=== PATIENT | male | born 1950 | race Caucasian/White ===

== ENCOUNTER 2019-05-23 15:06 | Emergency (ER) | payer MEDICARE, BC ==
[2019-05-23 15:18] VITALS: BP 126/90; PULSE 102
[2019-05-23] MEDS ORDERED: Butorphanol 2 MG/ML SDV IM ONE (16:09)
--- NOTE | 2019-05-23 17:07 | EDM.PDOC ---
Scribed by Felicita Martinez 05/23/19 [id number] for Sarah Velasquez NP ED HPI GENERAL MEDICAL PROBLEM - General Chief Complaint: Back Pain or Injury Stated Complaint: AMBULANCE Time Seen by Provider: 05/23/19 15:20 Source of Information: Reports: Patient, RN, RN Notes Reviewed History Limitations: Reports: No Limitations - History of Present Illness INITIAL COMMENTS - FREE TEXT/NARRATIVE: A 68-year-old patient who has chronic low back pain without surgery. He had a back injury in 1992 and sees a chiropractor for his pain. He takes hydrocodone 10/325 2x times daily by his PCP. He has a history of COPD and HTN that is stable. His back has been bothering him more the last 1.5 days. He was sitting on the toilet just prior to calling EMS and had a back spasm and could not get up. No recent falls. He works at [employer] and does not recall any particular injury. No radiculopathy or numbness in LE. No incontinence. 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: Other Medication(s) (Hydrocodone and soma) Lower Back Pain Score (Numeric/FACES): 8 - Related Data Allergies Allergy/AdvReac Type Severity Reaction Status Date / Time acetaminophen [From Endocet] Allergy Other Verified 09/21/15 09:19 cyclobenzaprine HCl Allergy Cannot Verified 09/21/15 09:19 [From Flexeril] Remember oxycodone HCl [From Endocet] Allergy Other Verified 09/21/15 09:19 Penicillins Allergy Itching Verified 09/21/15 09:19 piroxicam [From Feldene] Allergy Other Verified 09/21/15 09:19 Home Meds: Home Meds Albuterol [Ventolin HFA] 2 puff INH Q6H PRN 09/07/15 [History] Carisoprodol [Soma] 1 tab PO BID 09/07/15 [History] Hydrocodone/Acetaminophen [[place] 10-325] 1 tab PO QID PRN 09/07/15 [History] Losartan [Cozaar] 1 tab PO BID 09/07/15 [History] RABEprazole [Aciphex] 1 tab PO DAILY 09/07/15 [History] Simvastatin [Zocor] 1 tab PO BEDTIME 09/07/15 [History] hydrOXYzine Pamoate [Vistaril] 1 cap PO TID PRN 09/07/15 [History] Past Medical History - Past Health History Medical/Surgical History: Denies Medical/Surgical History HEENT History: Reports: Cataract, Other (See Below) Other HEENT History: TINNITUS Cardiovascular History: Reports: High Cholesterol, Hypertension Respiratory History: Reports: COPD Gastrointestinal History: Reports: PUD Genitourinary History: Reports: None Musculoskeletal History: Reports: Back Pain, Chronic, Fracture, Osteoarthritis, Other (See Below) Other Musculoskeletal History: DEGENERATION OF INTERVERTEBRAL DISC; L CARPAL NAVICULAR FRACTURE Neurological History: Reports: Other (See Below) Other Neuro History: INSOMNIA Psychiatric History: Reports: Anxiety, Mood Swings Endocrine/Metabolic History: Reports: Other (See Below) Other Endocrine/Metabolic History: HYPERHIDROSIS Hematologic History: Reports: None Immunologic History: Reports: None Oncologic (Cancer) History: Reports: None Dermatologic History: Reports: None - Past Surgical History GI Surgical History: Reports: Appendectomy Musculoskeletal Surgical History: Reports: Arthroscopic Knee ED ROS GENERAL - Review of Systems Review Of Systems: ROS reveals no pertinent complaints other than HPI. ED EXAM,LOWER BACK PAIN/INJURY - Physical Exam Exam: See Below Exam Limited By: No Limitations General Appearance: Alert, WD/WN, No Apparent Distress Eye Exam: Bilateral Eye: EOMI, Normal Inspection, PERRL Ears: Normal External Exam, Normal Canal, Hearing Grossly Normal, Normal TMs Nose: Normal Inspection, Normal Mucosa, No Blood Throat/Mouth: Normal Inspection, Normal Lips, Normal Teeth, Normal Gums, Normal Oropharynx, Normal Voice, No Airway Compromise Head: Atraumatic, Normocephalic Neck: Normal Inspection, Supple, Non-Tender, Full Range of Motion Respiratory/Chest: No Respiratory Distress, Lungs Clear, Normal Breath Sounds, No Accessory Muscle Use, Chest Non-Tender Cardiovascular: Normal Peripheral Pulses, Regular Rate, Rhythm, No Edema, No Gallop, No JVD, No Murmur, No Rub GI/Abdominal: Normal Bowel Sounds, Soft, Non-Tender, No Organomegaly, No Distention, No Abnormal Bruit, No Mass (Male) Exam: Deferred Rectal (Males) Exam: Deferred Back Exam: Muscle Spasm, Other (Tender to palpate over the L3-4. No CVA tenderness) Extremities: Normal Inspection, Normal Range of Motion, Non-Tender, No Pedal Edema, Normal Capillary Refill Neurological: Alert, Normal Mood/Affect, Normal Dorsiflexion, CN II-XII Intact, Normal Plantar Flexion, Normal Gait, Normal Reflexes, No Motor/Sensory Deficits , Oriented x 3 Psychiatric: Normal Affect, Normal Mood Skin Exam: Warm, Dry, Intact, Normal Color, No Rash Course - Vital Signs Last Recorded V/S: Last Vital Signs Temp 37.9 C 05/23/19 15:14 Pulse 102 H 05/23/19 15:14 Resp 20 05/23/19 15:14 BP 126/90 05/23/19 15:14 Pulse Ox 100 05/23/19 15:14 - Orders/Labs/Meds Orders: Active Orders 24 hr Category Date Time Status Lumbar Spine 2 or 3V [CR] Urgent Exams 05/23/19 15:38 Taken CULTURE URINE [RM] Stat Lab 05/23/19 15:52 Received Orphenadrine [Norflex] Med 05/23/19 16:15 Active 60 mg IM Q12H Medication Orders Orphenadrine Citrate (Norflex) 60 mg IM Q12H THAO Last Admin: 05/23/19 16:17 Dose: 60 mg Labs: Laboratory Tests 05/23/19 05/23/19 Range/Units 15:52 15:52 Urine Color Yellow (YELLOW) Urine Appearance Clear (CLEAR) Urine pH 5.5 (5.0-9.0) Ur Specific [place] 1.025 (1.005-1.030) Urine Protein 30 H (NEGATIVE) Urine Glucose (UA) Negative (NEGATIVE) Urine Ketones Negative (NEGATIVE) Urine Occult Blood Large H (NEGATIVE) Urine Nitrite Negative (NEGATIVE) Urine Bilirubin Negative (NEGATIVE) Urine Urobilinogen 0.2 (0.2-1.0) mg/dL Ur Leukocyte Esterase Negative (NEGATIVE) Urine RBC 5-10 H /HPF Urine WBC 10-20 H (0-5/HPF) /HPF Ur Epithelial Cells Few (NOT SEEN) /HPF Urine Bacteria Moderate H (0-FEW/HPF) /HPF Hyaline Casts Rare H (NOT SEEN) /LPF Granular Casts Few (NOT SEEN) /LPF Fine Granular Casts Occasional H (NOT SEEN) /LPF Urine Opiates Screen Positive H (NEGATIVE) Ur Oxycodone Screen Negative (NEGATIVE) Urine Methadone Screen Negative (NEGATIVE) Ur Barbiturates Screen Negative (NEGATIVE) U Tricyclic Antidepress Negative (NEGATIVE) Ur Phencyclidine Scrn Negative (NEGATIVE) Ur Amphetamine Screen Negative (NEGATIVE) U Methamphetamines Scrn Negative (NEGATIVE) Urine MDMA Screen Negative (NEGATIVE) U Benzodiazepines Scrn Negative (NEGATIVE) Urine Cocaine Screen Negative (NEGATIVE) U Marijuana (THC) Screen Negative (NEGATIVE) Meds: Medications Generic Name Dose Route Start Last Admin Trade Name Freq PRN Reason Stop Dose Admin Orphenadrine Citrate 60 mg 05/23/19 16:15 05/23/19 16:17 Norflex IM 60 mg Q12H THAO Administration Discontinued Medications Generic Name Dose Route Start Last Admin Trade Name Freq PRN Reason Stop Dose Admin Butorphanol Tartrate 1 mg 05/23/19 16:09 05/23/19 16:19 Stadol IM 05/23/19 16:10 1 mg ONETIME ONE Administration - Radiology Interpretation Free Text/Narrative:: Lumbar xray negative for fracture. Degenerative disc and facet disease with mild scoliosis. Departure - Departure Time of Disposition: 16:51 Disposition: Home, Self-Care 01 Condition: Good Clinical Impression: Lumbar pain, Chronic back pain - Discharge Information *PRESCRIPTION DRUG MONITORING PROGRAM REVIEWED*: Not Applicable *COPY OF PRESCRIPTION DRUG MONITORING REPORT IN PATIENT YANA: Not Applicable Instructions: Facet Syndrome, Back Injury Prevention, [id number], What You Need to Know About Chronic Back Pain Referrals: PCP,Not In Area [Primary Care Provider] - Forms: ED Department Discharge Additional Instructions: Follow up with your primary care next week. Continue your regular meds and try heat. We gave you a muscle relaxer and pain med injection; dont take you regular pain med till tonight. Encourage stool softeners as well as mirlax once a day to prevent constipation when taking narcotics - My Orders Last 24 Hours: My Active Orders 05/23/19 15:38 Lumbar Spine 2 or 3V [CR] Urgent 05/23/19 15:52 CULTURE URINE [RM] Stat 05/23/19 16:15 Orphenadrine [Norflex] 60 mg IM Q12H - Assessment/Plan Last 24 Hours: My Active Orders 05/23/19 15:38 Lumbar Spine 2 or 3V [CR] Urgent 05/23/19 15:52 CULTURE URINE [RM] Stat 05/23/19 16:15 Orphenadrine [Norflex] 60 mg IM Q12H I have read and agree with the documentation that has been completed regarding this visit. By signing this record, I attest that the documentation was completed in my physical presence and is an accurate record of the encounter.
== END 2019-05-23 16:52 | disposition home or self-care (01) ==
LOC: DL.ED 15:06
DX: M54.5 Low back pain (principal); G89.29 Other chronic pain; I10 Essential (primary) hypertension; E78.00 Pure hypercholesterolemia, unspecified; J44.9 Chronic obstructive pulmonary disease, unspecified; F41.9 Anxiety disorder, unspecified; Z79.899 Other long term (current) drug therapy; Z88.6 Allergy status to analgesic agent; Z88.0 Allergy status to penicillin; Z88.8 Allergy status to other drugs, medicaments and biological substances
CPT/HCPCS: 72100; 80305; 81001; 87086; 96372; 99284; J0595; J2360; 87088; 87186

== ENCOUNTER 2019-05-26 21:08 | Emergency (ER) | payer MEDICARE, BC ==
--- NOTE | 2019-05-26 21:22 | EDM.PDOC ---
ED HPI GENERAL MEDICAL PROBLEM - General Chief Complaint: Abdominal Pain Stated Complaint: AMBULANCE Time Seen by Provider: 05/26/19 21:15 Source of Information: Reports: Patient, EMS, Family, RN History Limitations: Reports: No Limitations - History of Present Illness INITIAL COMMENTS - FREE TEXT/NARRATIVE: ED via [facility] with c/o abdominal discomfort around umbilicus, feels constipated, last BM 2 days prior has not been out of bed past couple of days except to BR today. Increased chronic back pain since Saturday. On chronic narcotic pain medications, and stool softeners. Was seen in ED on Saturday initiated on Soma. EMS reported foound patient on toilet diaphoretic. No vomiting. No c.o chest pain, SOB but no change from usual. Hx of prior blood clots to lungs few years ago. Last px in September. Hx umbilical hernia, No recent fever or chills. No cough. Abdominal Pain Score (Numeric/FACES): 9 - Related Data Allergies Allergy/AdvReac Type Severity Reaction Status Date / Time acetaminophen [From Endocet] Allergy Other Verified 05/26/19 21:33 cyclobenzaprine HCl Allergy Cannot Verified 05/26/19 21:33 [From Flexeril] Remember oxycodone HCl [From Endocet] Allergy Other Verified 05/26/19 21:33 Penicillins Allergy Itching Verified 05/26/19 21:33 piroxicam [From Feldene] Allergy Other Verified 05/26/19 21:33 Home Meds: Home Meds Albuterol [Ventolin HFA] 2 puff INH Q6H PRN 09/07/15 [History] Carisoprodol [Soma] 1 tab PO BID 09/07/15 [History] Hydrocodone/Acetaminophen [[place] 10-325] 1 tab PO QID PRN 09/07/15 [History] Losartan [Cozaar] 1 tab PO BID 09/07/15 [History] RABEprazole [Aciphex] 1 tab PO DAILY 09/07/15 [History] Simvastatin [Zocor] 1 tab PO BEDTIME 09/07/15 [History] hydrOXYzine Pamoate [Vistaril] 1 cap PO TID PRN 09/07/15 [History] Past Medical History - Past Health History Medical/Surgical History: Denies Medical/Surgical History HEENT History: Reports: Cataract, Other (See Below) Other HEENT History: TINNITUS Cardiovascular History: Reports: High Cholesterol, Hypertension Respiratory History: Reports: COPD Gastrointestinal History: Reports: PUD Genitourinary History: Reports: None Musculoskeletal History: Reports: Back Pain, Chronic, Fracture, Osteoarthritis, Other (See Below) Other Musculoskeletal History: DEGENERATION OF INTERVERTEBRAL DISC; L CARPAL NAVICULAR FRACTURE Neurological History: Reports: Other (See Below) Other Neuro History: INSOMNIA Psychiatric History: Reports: Anxiety, Mood Swings Endocrine/Metabolic History: Reports: Other (See Below) Other Endocrine/Metabolic History: HYPERHIDROSIS Hematologic History: Reports: None Immunologic History: Reports: None Oncologic (Cancer) History: Reports: None Dermatologic History: Reports: None - Past Surgical History GI Surgical History: Reports: Appendectomy Musculoskeletal Surgical History: Reports: Arthroscopic Knee Social & Family History - Family History Family Medical History: Noncontributory - Caffeine Use Caffeine Use: Reports: None ED ROS GENERAL - Review of Systems Review Of Systems: ROS reveals no pertinent complaints other than HPI. ED EXAM, GI/ABD - Physical Exam Exam: See Below Exam Limited By: No Limitations General Appearance: Alert, Mild Distress, Obese Eyes: Bilateral: EOMI Ears: Normal External Exam, Hearing Grossly Normal Nose: Normal Inspection Throat/Mouth: Normal Inspection Head: Atraumatic, Normocephalic Neck: Normal Inspection, Full Range of Motion Respiratory/Chest: No Respiratory Distress, Chest Non-Tender, Decreased Breath Sounds (bases), Other (initial saturation low 80's, ). No: Wheezing Cardiovascular: Regular Rate, Rhythm, Tachycardia, Irregularly Irregular GI/Abdominal Exam: Distended, Tender (umbilicus). No: Guarding Back Exam: Paraspinal Tenderness (lumbar) Extremities: Normal Range of Motion Psychiatric: Normal Affect Skin Exam: Warm, Dry, Intact. No: Normal Color (Reticular markings anterior thighs and abdomen does not extend above abdomen or below knees. ) Course - Vital Signs Last Recorded V/S: Last Vital Signs Temp 97.3 F 05/26/19 22:34 Pulse 113 H 05/26/19 23:05 Resp 26 H 05/26/19 23:05 BP 112/72 05/26/19 23:05 Pulse Ox 94 L 05/26/19 23:05 - Orders/Labs/Meds Orders: Active Orders 24 hr Category Date Time Status EKG 12 Lead [EKG Documentation Completion] [RC] URGENT Care 05/26/19 21:19 Active Glucose [Blood Glucose Check, Bedside] [RC] ONETIME Care 05/26/19 22:09 Active Labs: Laboratory Tests 05/26/19 05/26/19 05/26/19 Range/Units 21:27 21:27 21:27 WBC 9.8 (5.0-10.0) 10^3/uL RBC 5.01 (4.6-6.2) 10^6/uL Hgb 13.2 L (14.0-18.0) g/dL Hct 40.0 (40.0-54.0) % MCV 79.8 L (80-100) fL MCH 26.3 L (27.0-34.0) pg MCHC 33.0 (33.0-35.0) g/dL Plt Count 138 L (150-450) 10^3/uL Neut % (Auto) 90.7 H (42.2-75.2) % Lymph % (Auto) 4.7 L (20.5-50.1) % [place] % (Auto) 4.3 (2-8) % Eos % (Auto) 0.1 L (1.0-3.0) % Baso % (Auto) 0.2 (0.0-1.0) % Add Manual Diff Yes Neutrophils % (Manual) 87 H (42-75) % Band Neutrophils % 2 % Lymphocytes % (Manual) 4 L (20-50) % Monocytes % (Manual) 7 (2-8) % Nucleated RBCs 2 /100WBC Vacuolated Monocytes 1+ slight PT 10.8 (9.0-12.0) SEC INR 1.1 (0.9-1.2) D-Dimer, Quantitative > 5000 H (0-400) ng/mL ABG pH (7.35-7.45) ABG pCO2 (35-45) mmHg ABG pO2 (70-100) mmHg ABG HCO3 (22-26) mmol/L ABG O2 Saturation (95-100) % ABG Base Excess ((-2)-(+3)) mmol/L Hernando Test O2 Delivery Device Sodium 128 L (135-145) mmol/L Potassium 4.2 (3.6-5.0) mmol/L Chloride 90 L (101-111) mmol/L Carbon Dioxide 15.0 L (21.0-31.0) mmol/L Anion Gap 27.2 BUN 124 H (7-18) mg/dL Creatinine 7.2 H (0.6-1.3) mg/dL Est Cr Clr Drug Dosing 11.41 mL/min Estimated GFR (MDRD) 8 BUN/Creatinine Ratio 17.22 Glucose 68 L (74-105) mg/dL POC Glucose (70-105) mg/dl Calcium 7.8 L (8.4-10.2) mg/dl Total Bilirubin 1.1 H (0.2-1.0) mg/dL AST 130 H (10-42) IU/L ALT 89 H (10-60) IU/L Alkaline Phosphatase 82 (42-121) IU/L Troponin I 0.05 H* (0.00-0.02) ng/ml B-Natriuretic Peptide 423 H (0-100) pg/ml Total Protein 6.8 (6.7-8.2) g/dl Albumin 2.8 L (3.2-5.5) g/dl Globulin 4.0 Albumin/Globulin Ratio 0.70 Amylase 32 (28-100) U/L Lipase 25 (22-51) U/L 05/26/19 05/26/19 Range/Units 21:40 22:14 WBC (5.0-10.0) 10^3/uL RBC (4.6-6.2) 10^6/uL Hgb (14.0-18.0) g/dL Hct (40.0-54.0) % MCV (80-100) fL MCH (27.0-34.0) pg MCHC (33.0-35.0) g/dL Plt Count (150-450) 10^3/uL Neut % (Auto) (42.2-75.2) % Lymph % (Auto) (20.5-50.1) % [place] % (Auto) (2-8) % Eos % (Auto) (1.0-3.0) % Baso % (Auto) (0.0-1.0) % Add Manual Diff Neutrophils % (Manual) (42-75) % Band Neutrophils % % Lymphocytes % (Manual) (20-50) % Monocytes % (Manual) (2-8) % Nucleated RBCs /100WBC Vacuolated Monocytes PT (9.0-12.0) SEC INR (0.9-1.2) D-Dimer, Quantitative (0-400) ng/mL ABG pH 7.26 L (7.35-7.45) ABG pCO2 30 L (35-45) mmHg ABG pO2 79 (70-100) mmHg ABG HCO3 12.8 L (22-26) mmol/L ABG O2 Saturation 93 L (95-100) % ABG Base Excess -13 L ((-2)-(+3)) mmol/L Hernando Test Performed O2 Delivery Device Room air Sodium (135-145) mmol/L Potassium (3.6-5.0) mmol/L Chloride (101-111) mmol/L Carbon Dioxide (21.0-31.0) mmol/L Anion Gap BUN (7-18) mg/dL Creatinine (0.6-1.3) mg/dL Est Cr Clr Drug Dosing mL/min Estimated GFR (MDRD) BUN/Creatinine Ratio Glucose (74-105) mg/dL POC Glucose 62 L (70-105) mg/dl Calcium (8.4-10.2) mg/dl Total Bilirubin (0.2-1.0) mg/dL AST (10-42) IU/L ALT (10-60) IU/L Alkaline Phosphatase (42-121) IU/L Troponin I (0.00-0.02) ng/ml B-Natriuretic Peptide (0-100) pg/ml Total Protein (6.7-8.2) g/dl Albumin (3.2-5.5) g/dl Globulin Albumin/Globulin Ratio Amylase (28-100) U/L Lipase (22-51) U/L Meds: Medications Discontinued Medications Generic Name Dose Route Start Last Admin Trade Name Freq PRN Reason Stop Dose Admin Aspirin 324 mg 05/26/19 22:14 05/26/19 22:18 Aspirin PO 05/26/19 22:15 324 mg ONETIME ONE Administration Diltiazem HCl 10 mg 05/26/19 21:29 05/26/19 22:01 Diltiazem IVPUSH 05/26/19 21:30 5 mg ONETIME ONE Administration Heparin Sodium (Porcine) 5,000 units 05/26/19 22:55 05/26/19 23:01 Heparin Sodium SUBCUT 05/26/19 22:56 Not Given ONETIME ONE Heparin Sodium (Porcine) 5,000 units 05/26/19 23:00 05/26/19 23:00 Heparin Sodium IVPUSH 05/26/19 23:01 5,000 units .BOLUS ONE Administration Sodium Chloride 1,000 mls @ 999 mls/hr 05/26/19 21:42 05/26/19 21:26 Normal Saline IV 05/26/19 22:42 999 mls/hr .BOLUS ONE Administration Diltiazem HCl 125 mg/ Sodium 125 mls @ 5 mls/hr 05/26/19 22:15 05/26/19 22:27 Chloride IV 5 mg/hr TITRATE THAO 5 mls/hr Administration Protocol 5 MG/HR Sodium Chloride 1,000 mls @ 500 mls/hr 05/26/19 22:29 05/26/19 22:31 Normal Saline IV 05/27/19 00:28 500 mls/hr .BOLUS ONE Administration Heparin Sodium/Sodium Chloride 25,000 units in 500 mls @ 45.396 mls/hr 22:54 05/26/19 23:01 Heparin 25,000 Units In 1/2 Ns 500 Ml IV 05/27/19 09:54 18 units/kg/hr TITRATE ONE 45.396 mls/hr Administration Protocol 18 UNITS/KG/HR Sodium Bicarbonate 50 meq 05/26/19 22:17 05/26/19 22:25 Sodium Bicarbonate 8.4% IVPUSH 05/26/19 22:18 50 meq ONETIME ONE Administration - Radiology Interpretation Free Text/Narrative:: [facility] Final Radiology Report Call: [phone] assistance Online chat: [email or web address] Name: ARAMIS BASILIO Age: 68Years M Date: 05/26/2019 SSN: -- : 1950 Study: XR CHEST 1 VIEW FRONTAL Requesting Physician: JR NAJERA Images: 1 Addl Studies: Provided Clinical History: Contrast: Contrast Medium: Contrast Amount: Contrast Method: CONFIDENTIALITY STATEMENT This report is intended only for use by the referring physician, and only in accordance with law. If you received this in error, call [phone]. Page 1 of 1 PROCEDURE INFORMATION: Exam: XR Chest, 1 View Exam date and time: 05/26/2019 10:10 PM Clinical history: 68 years old, male; Other: Edema, SOB TECHNIQUE: Imaging protocol: XR of the chest Views: 1 view. COMPARISON: No relevant prior studies available. FINDINGS: Lungs: Unremarkable. No consolidation. Left base poorly visualized on this single portable view. Pleural space: Unremarkable. No evidence of pneumothorax. Heart/Mediastinum: Unremarkable. Heart size within normal limits for technique. Bones/joints: Old rib fracture deformities. IMPRESSION: No acute findings. Thank you for allowing us to participate in the care of your patient. Dictated and Authenticated by: Leonardo Ibarra MD 05/26/2019 10:56 PM Central Time ([place] & [place] - Re-Assessments/Exams Free Text/Narrative Re-Assessment/Exam: Patient alert, Initial TC Dr Timmy Bowie accepting of patieet. Tx via VMF. Initial hypotension mild improvement with IVF. O2 sats improved with O2 2L. HR decreased 110's with cardizem. able to access patient's prior labs from September 2018. Chemistry unremarkable. with previous creatinine 1.1. Prior bili AST and ALT with in normal parameters. Code stauts discussed. Patient and family desire full code. Departure - Departure Time of Disposition: 23:30 Disposition: DC/Tfer to Acute Hospital 02 Condition: Critical Clinical Impression: Elevated troponin, Atrial fibrillation, new onset, Elevated liver enzymes, D- dimer, elevated, Metabolic acidosis Acute renal failure Qualifiers: Acute renal failure type: unspecified Qualified Code(s): N17.9 - Acute kidney failure, unspecified Abdominal pain Qualifiers: Abdominal location: periumbilical Qualified Code(s): R10.33 - Periumbilical pain Chronic back pain Qualifiers: Back pain location: low back pain Back pain laterality: unspecified Sciatica presence: without sciatica Qualified Code(s): M54.5 - Low back pain; G89.29 - Other chronic pain - Discharge Information Referrals: Bird Perez NP [Primary Care Provider] - Forms: ED Department Discharge - My Orders Last 24 Hours: My Active Orders 05/26/19 21:19 EKG 12 Lead [EKG Documentation Completion] [RC] URGENT 05/26/19 22:09 Glucose [Blood Glucose Check, Bedside] [RC] ONETIME - Assessment/Plan Last 24 Hours: My Active Orders 05/26/19 21:19 EKG 12 Lead [EKG Documentation Completion] [RC] URGENT 05/26/19 22:09 Glucose [Blood Glucose Check, Bedside] [RC] ONETIME
[2019-05-26] MEDS ORDERED: Sodium Chloride 0.9% 1,000 ML IV ONE ×2 (21:42→22:29)
[2019-05-26 21:44] LABS: BASE EXCESS ARTERIAL -13 mmol/L ((-2)-(+3)); BICARBONATE,ARTERIAL 12.8 mmol/L (22-26); O2 DELIVERY DEVICE ROOM AIR; O2 SATURATION ARTERIAL 93 % (95-100); PCO2 ARTERIAL 30 mmHg (35-45); PO2 ARTERIAL 79 mmHg (70-100)
[2019-05-26] MEDS: Diltiazem 25 MG/5 ML SDV IVPUSH ONE ×2 (21:44→22:01)
[2019-05-26 21:45] LABS: ALLEN TEST PERFORMED
[2019-05-26 21:54] LABS: ANION GAP 27.2
[2019-05-26] MEDS ORDERED: Aspirin 81 MG Tab.Chew PO ONE (22:14)
[2019-05-26] MEDS ORDERED: Diltiazem 125 MG in Sodium Chloride 0.9% 100 ML IV SCH (22:15)
[2019-05-26] MEDS ORDERED: Sodium Bicarbonate 8.4% 50 MEQ/50 ML Syringe IVPUSH ONE (22:17)
[2019-05-26] MEDS ORDERED: Heparin Sodium/0.45% NaCl 25,000 UNITS/500 ML BAG IV ONE (22:54)
[2019-05-26] MEDS ORDERED: Heparin Sodium 5,000 Units/ML Vial SUBCUT ONE (22:55)
[2019-05-26] MEDS ORDERED: Heparin Sodium 5,000 Units/ML Vial IVPUSH ONE (23:00)
[2019-05-26 23:06] VITALS: BP 112/72; PULSE 113
== END 2019-05-26 23:16 ==
LOC: DL.ED 21:08
DX: N17.9 Acute kidney failure, unspecified (principal); I48.91 Unspecified atrial fibrillation; M54.5 Low back pain; R10.33 Periumbilical pain; G89.29 Other chronic pain; E87.2 Acidosis; R94.5 Abnormal results of liver function studies; R79.1 Abnormal coagulation profile; R74.8 Abnormal levels of other serum enzymes; I10 Essential (primary) hypertension; E78.00 Pure hypercholesterolemia, unspecified; J44.9 Chronic obstructive pulmonary disease, unspecified; F41.9 Anxiety disorder, unspecified; M19.90 Unspecified osteoarthritis, unspecified site; Z90.49 Acquired absence of other specified parts of digestive tract; Z88.1 Allergy status to other antibiotic agents; Z79.51 Long term (current) use of inhaled steroids; Z79.899 Other long term (current) drug therapy; Z88.0 Allergy status to penicillin
CPT/HCPCS: 36415; 36600; 71045; 80053; 82150; 82803; 82962; 83690; 83880; 84484; 85025; 85379; 85610; 93005; 96365; 96375; 96376; 99285-25; A9270-GY; J1644; J3490; J7030; J7050